=== PATIENT | male | born 1960 | race Two or more races ===

== ENCOUNTER 2018-02-25 08:50 | Emergency (ER) | payer BC ==
[~2018-02-25] VITALS: Ht 175.3 cm; Wt 90.7 kg
[2018-02-25 09:15] VITALS: BP 155/97
== END 2018-02-25 11:16 | disposition home or self-care (01) ==
LOC: ER 08:50
DX: M79.671 Pain in right foot (principal); E11.9 Type 2 diabetes mellitus without complications; I10 Essential (primary) hypertension; E78.5 Hyperlipidemia, unspecified
CPT/HCPCS: 73630